=== PATIENT | male | born 1995 | race Two or more races ===

== ENCOUNTER 2017-11-08 12:19 | Emergency (ER) | payer MEDICAID ==
[~2017-11-08] VITALS: Ht 175.3 cm; Wt 72.6 kg
[2017-11-08 12:28] VITALS: Ht 175.3 cm; Wt 72.6 kg
[2017-11-08 13:16] VITALS: BP 138/88
== END 2017-11-08 13:16 | disposition home or self-care (01) ==
LOC: ED 12:19
DX: K29.70 Gastritis, unspecified, without bleeding (principal); F12.90 Cannabis use, unspecified, uncomplicated; I10 Essential (primary) hypertension
CPT/HCPCS: Q0162

== ENCOUNTER 2018-10-22 13:27 | Emergency (ER) | payer MEDICAID ==
[~2018-10-22] VITALS: Ht 175.3 cm; Wt 74.4 kg
[2018-10-22 13:31] VITALS: Ht 175.3 cm; Wt 74.4 kg
[2018-10-22 15:56] VITALS: BP 130/76
== END 2018-10-22 15:43 | disposition home or self-care (01) ==
LOC: ED 13:27
DX: S60.111A Contusion of right thumb with damage to nail, initial encounter (principal); L03.011 Cellulitis of right finger; W23.0XXA Caught, crushed, jammed, or pinched between moving objects, initial encounter; Y93.89 Activity, other specified; Y92.89 Other specified places as the place of occurrence of the external cause; Y99.8 Other external cause status
CPT/HCPCS: Q0092